=== PATIENT | male | born 2000 | race Caucasian/White ===

== ENCOUNTER → 2024-04-09 13:29 | Outpatient (REF) | payer OTHER, SELFPAY | LOC: MRI 3T 13:29 | PROVIDERS: ATTENDING PHYSICIAN Orthopaedic Surgery Sports Medicine; FAMILY PHYSICIAN Family Medicine | DX: M25.512 Pain in left shoulder (principal) | CPT/HCPCS: 23350; 73040; 73222 ==

== ENCOUNTER 2025-06-04 21:25 | Emergency (ER) | payer OTHER, SELFPAY ==
[2025-06-04 21:39] VITALS: BP 159/100
[2025-06-04 22:02] LABS: Hematocrit 45.0 % (39.0-52.0); Hemoglobin 15.3 g/dL (13.0-18.0); Mean Corp Hgb Conc. 34.0 g/dL (33.0-37.0); Mean Corpuscular Volume 82.0 fL (80.0-94.0); Nucleated Red Blood Cells % 0 % (-); Platelet Count 294 10^3/uL (130-400); Red Cell Dist. Width 12.7 % (11.5-14.5)
[2025-06-04 22:23] LABS: ALT (SGPT) 21 U/L (0-50); AST (SGOT) 25 U/L (17-59); Albumin 5.3 g/dl (3.5-5.0); Alkaline Phosphatase 93 U/L (38-126); Blood Urea Nitrogen 16 mg/dl (9-20); Calcium 10.4 mg/dl (8.4-10.2); Carbon Dioxide 27 mmol/L (22-30); Chloride 100 mmol/L (98-107); Glucose 97 mg/dl (70-99); Potassium 4.3 mmol/L (3.5-5.1); Sodium 137 mmol/L (135-145); Total Protein 8.7 g/dl (6.3-8.2); eGFR > 60.00
[2025-06-04 23:36] VITALS: BP 145/90
[2025-06-04 23:37] VITALS: BMI 26.3
[2025-06-05] VITALS: BP 118/74
[2025-06-05 01:00] VITALS: BP 131/81
--- NOTE | 2025-06-05 01:32 | ED.GENMED ---
History of Present Illness
General
Chief Complaint: Skin Problem
Source: patient
Exam Limitations: none
Time Seen by Provider: 06/05/25 01:29
Nursing documentation reviewed up to this point in time: agreed with
History of Present Illness
History of Present Illness:
Note:
CHIEF COMPLAINT(S)
Rash with circular lesions, mild knee pain.
HISTORY OF PRESENT ILLNESS
The patient is a 25-year-old male with pmh of htn, homozygous prothrombin gene mutation, who presents today with concerns of a rash. He has a history of fever, chills, and body aches that occurred about two weeks ago and lasted for four to five
days. Following this, the patient experienced a symptom-free period of approximately one and a half weeks. Recently, the patient has noticed the development of circular lesions on the skin and reports joint pain in the knees, which he describes as
new and unusual. The rash is described as flat, warm to the touch, and located primarily on the lower back, as well as other parts of the body. The lesions do not itch and they are not painful. There is no drainage from these lesions. The patient
applied an [id number] antifungal ointment (miconazole) without improvement. He engages in activities that involve frequent exposure to wooded areas every other weekend. Concerned about Lyme disease, the patient noted a resemblance between his
symptoms and a Lyme disease rash seen online, but denies any recent tick bites. He reports that the family members have not experienced similar symptoms. The patient experiences knee achiness but is able to bear weight and has no noted swelling. He
denies recent injections into the knee. No new medications. No contact with new detergents or allergens.
PAST MEDICAL AND SURGICAL HISTORY
The patient reports having a homozygous prothrombin gene mutation
EXTERNAL RECORDS REVIEWED
The patients laboratory workup revealed a normal white blood cell count, and normal kidney and liver function tests.
CHRONIC MEDICAL CONDITIONS SIGNIFICANTLY AFFECTING CARE
Homozygous prothrombin gene mutation.
SOCIAL DETERMINANTS AFFECTING HEALTH
The patient regularly engages in outdoor activities in wooded areas, increasing his exposure to potential tick bites.
REVIEW OF SYSTEMS
- Constitutional: Previous fever and chills resolved.
- Skin: Circular lesions on the body, primarily on the lower back. Described as flat and warm but not itchy.
- Musculoskeletal: New onset of knee pain without swelling or functional limitation.
- Cardiovascular: No reported palpitations or chest pain.
- Respiratory: No difficulty breathing.
- Neurological: No facial numbness or weakness.
PHYSICAL EXAM
General: Alert, no acute distress.
Skin: There is a non-raised circular patch noted to the right anterior thigh; there are two larger raised circular patches noted to the bilateral flank areas and one to the upper back, no blistering, negative Nikolsky sign, no vesicular lesions
Head: Normocephalic, atraumatic.
Neck: Supple, trachea midline.
Eye, Ears, Nose, and Throat: Oral mucosa moist.
Cardiovascular: Regular rate and rhythm, no murmurs. Normal peripheral perfusion, No edema.
Respiratory: Respirations are non-labored.
Gastrointestinal: Abdomen nondistended.
Musculoskeletal: Normal ROM, normal strength, noted knee pain without swelling no pain with flexion and extension of the right knee no erythema no warm.
Neurological: Alert and oriented to person, place, time, and situation, No focal neurological deficits observed. No facial droop. CN II-XII intact.
Psychiatric: Cooperative, appropriate mood & affect.
PLAN
1. Initiate treatment with doxycycline, pending Lyme disease test results.
2. Provide referral to a telecommunications engineer for further evaluation and potential skin biopsy.
3. Advise the patient to monitor knee symptoms and return for further evaluation if swelling or worsening pain occurs.
4. Educate the patient on signs of potential complications from Lyme disease and recommend follow-up in case of symptom progression.
DIFFERENTIAL DIAGNOSIS
The Differential Diagnosis includes, in no particular order and is not limited to:
1. Lyme disease.
2. Ringworm (Tinea corporis).
3. Erythema migrans.
4. Other tick-borne illnesses (e.g., babesiosis).
5. Tinea versicolor.
6. Guttate psoriasis.
7. Pityriasis rosea.
8. Viral exanthem.
9. Contact dermatitis.
10. Urticaria.
Disposition:
SUMMARY OF ENCOUNTER
The patient is a 25-year-old male with a history of homozygous prothrombin gene mutation and hypertension who presented to the emergency department with concerns about a rash on his body. He initially noticed the rash on his thigh, which then spread
to his back and torso. He denies having any fevers currently and is feeling well otherwise. Two weeks ago, he experienced an illness with fever and body aches, but these symptoms have since resolved. The rash does not present any concerning features
such as blistering, peeling, or vesicular formation.
PLAN
This patient presents today with concerns of rash noted to thigh and torso. No associated fevers or chills. On exam, the rash does not have concerning features. The lesions are not raised. There are multiple erythematous patches with some central
clearing in some areas. There is no classic 'bulls eye' appearance---however the rashes have defined borders. Erythema migrans is at the top of my differential considering the patient's history of multiple hours being spent in a wooded area along
with the rash being non-pruritic, non-painful, non-raised in scattered areas. Patient has also complained of some knee pain however no signs of septic arthritis or lyme arthritis on exam. Patient currently has no fever, normal blood work, feeling
well. Lyme test pending. Considering the potentional complications of lyme disease and its progression, will treat empirically with doxycycline. No concern for babesiosis at this time.
Also on the differential would be fungal infection such as tinea versicolor or tinea corporis. Referral information provided for follow up with dermatology.
INDEPENDENT REVIEW OF LABS AND INTERPRETATION OF TESTS
My independent review of laboratory tests indicates normal white blood cell count and normal kidney and liver function tests.
MEDICATION RECONCILIATION
Prescription medication was prescribed. The patient is to begin doxycycline as a precaution while awaiting test results.
MEDICAL DECISION MAKING
-Complexity of Data Reviewed: Chronic conditions affecting care include homozygous prothrombin gene mutation and hypertension. Differential diagnosis includes Lyme disease, ringworm (tinea corporis), erythema migrans, other tick-borne illnesses
(e.g., babesiosis), tinea versicolor, guttate psoriasis, pityriasis rosea, viral exanthem, contact dermatitis, urticaria.
-Data:
Category 1: External record review reveals laboratory workup with normal white blood cell count, normal kidney, and liver function tests.
-Risk: Consideration of Admission/Observation: Escalation of care including admission/observation was considered given the complexity and risk of the patients presenting complaint and underlying comorbidities. However, ultimately the patient is
deemed safe for outpatient management with close follow-up. Reasoning: Work-up is reassuring and does not reveal any acute life/organ-threatening processes; the patients symptoms are well controlled upon reevaluation; reexamination is reassuring,
vital signs are stable, patient is agreeable with discharge, and deemed reliable for follow-up.
DIAGNOSIS
- Lyme disease (A69.2, unspecified)
- Rash (R21)
- Homozygous prothrombin gene mutation
- Hypertension (I10)
Past History
Social History
Tobacco: Non-smoker
Alcohol: None
Drug: Marijuana (Occasional) and Other (Trialed LSD for first time tonight)
Review of Systems
Review of Systems
All Other Systems: ROS reviewed and negative except as documented in HPI and ROS
Phy Exam
Physical Exam
Physical Exam:
see hpi
Course
Orders/Labs/Results
Orders:
Orders
06/04/25 21:54
Complete Blood Count/With Diff Urgent
Comprehensive Metabolic Panel Urgent
Erythrocyte Sed Rate Urgent
Lyme Progressive Urgent
Abnormal Lab Results
06/04/25
21:54
Calcium 10.4 H mg/dl
(8.4-10.2)
Total Protein 8.7 H g/dl
(6.3-8.2)
Albumin 5.3 H g/dl
(3.5-5.0)
06/04/25 21:54
06/04/25 21:54
Vital Signs
Initial and Last Documented VS:
Initial Vital Signs
Pulse Resp BP Pulse Ox
77 18 159/100 100
06/04/25 21:39 06/04/25 21:39 06/04/25 21:39 06/04/25 21:39
Last Documented Vital Signs
Pulse Resp BP Pulse Ox
78 17 137/90 95
06/05/25 02:00 06/05/25 02:00 06/05/25 02:00 06/05/25 02:00
*Pulse Oximetry
SaO2: 97
Oxygen Mode of Delivery: Room air
Patient hypoxic: no
*Critical Care Note
Total Time (30-74mins, 75-104mins- exclusive of procedures): Not Applicable
ED Attending Note
-
Portions of this chart may have been created with voice recognition software.� Occasional wrong word or��sound alike� substitutions may have occurred due to the inherent limitations of voice recognition software.
Discharge Plan
Departure
Patient Disposition: Home (Routine Discharge)
Date of Disposition: 06/05/25
Time of Disposition: 02:02
Patient with high blood pressure during this ER visit?: Yes
Condition: Good
Discharge Problem:
Rash, Body aches
Instructions: Skin Rash (DC), BLOOD PRESSURE
Prescriptions:
New
doxycycline hyclate 100 mg capsule
100 mg PO BID 10 Days Qty: 14 0RF
No Action
guanfacine 2 MG tablet extended release 24 hr
2 mg PO DAILY
Referrals:
Harry Desai MD [Family Provider, Family Practice]
Olga Alejandra MD [Consulting Staff, Dermatology] - Call in 1-3 days for appt
Activity Restrictions/Additional Instructions:
Doxycycline was sent to your pharmacy. Please take 1 tablet twice daily for 10 days.
Please continue to monitor your symptoms. Please call at home or schedule follow-up appoint with dermatology. You will receive a call regarding the results of your Lyme test. PLEASE RETURN TO ER SHOULD YOU DEVELOP SWELLING YOUR KNEE, INABILITY
AMBULATE, FEVERS OR CHILLS, NUMBNESS OR TINGLING, FACIAL DROOP, DIZZINESS, LIGHTHEADEDNESS, CHEST PAIN, PALPITATIONS, NECK PAIN, OR ANY OTHER SIGNS OR SYMPTOMS WORRISOME TO YOU.
Interventions
Interventions:
*Risk Screen - Suicide Last Done: 06/04/25 21:27
*General Assessment Last Done: 06/04/25 23:26
*Neglect/Abuse Screening Last Done: 06/04/25 21:45
*ED- Fall Risk Assessment Last Done: 06/04/25 23:26
*ED COVID-19 Vaccine History Last Done: 06/04/25 23:26
*Nursing Disposition Last Done: 06/05/25 02:07
ED-Skin Assessment Last Done: 06/04/25 23:39
Discharge Date and Time
Discharge Date/Time: 06/05/25 02:08
Print Language: SWEDISH
[2025-06-05 02:00] VITALS: BP 137/90
[2025-06-06 16:01] LABS: Lyme Antibody Screen, EIA Presump. Positive (Negative)
== END 2025-06-05 02:08 | disposition home or self-care (01) ==
LOC: EMR 21:25
PROVIDERS: EMERGENCY PHYSICIAN Emergency Medicine; FAMILY PHYSICIAN Family Medicine
DX: R21 Rash and other nonspecific skin eruption (principal); M79.10 Myalgia, unspecified site; I10 Essential (primary) hypertension; D68.52 Prothrombin gene mutation
CPT/HCPCS: 99283; 80053; 85025; 85652; 86617; 86618